=== PATIENT | female | born 1955 | race Caucasian/White ===

== ENCOUNTER → 2016-10-13 | Outpatient (CLI) | payer OTHER ==
--- NOTE | 2016-10-13 11:52 | REP ---
Gastric emptying nuclear scintigraphy: History: Nausea and vomiting. Technique: 0.989 mCi of technetium-99m sulfur colloid was ingested in two scrambled eggs and 6 ounces of water and sequential anterior and posterior images are acquired for an 89-minute imaging observation period. Regions of interest are drawn around the stomach to plot gastric emptying. Scintigraphic findings: Expected T1/2 is 90 minutes. 12 % emptying is observed in this patient during the 89-minute imaging observation period, for a calculated T1/2 in this patient of 377 minutes. Impression: Delayed gastric emptying. Signed by Edil Corado MD 10/13/2016 11:42 A
== END ==
LOC: M RAD 09:05
PROVIDERS: ATTEND Internal Medicine Gastroenterology
DX: R11.2 Nausea with vomiting, unspecified (principal)

== ENCOUNTER 2018-10-10 14:26 | Emergency (ER) | payer OTHER ==
[~2018-10-10] VITALS: Ht 165.1 cm; Wt 88.6 kg
[2018-10-10] MEDS ORDERED: HEPARIN 25,000 UNITS/250 ML D5W BAG (100 UNITS/ML) ONE (14:27)
[2018-10-10] MEDS ORDERED: MECLIZINE 25 MG TABLET PO ONE (15:15)
[2018-10-10 15:20] LABS: BASO # 0.1 10^3/uL (0.0-0.2); BASO % 0.9 % (0.0-1.0); EOS # 0.1 10^3/uL (0.0-0.50); LYMPH # 2.4 10^3/uL (1.5-4.5); LYMPH % 24.7 % (24.0-44.0); MEAN CORPUSCULAR HEMOGLOBIN 30.3 pg (27.0-33.0); MEAN CORPUSCULAR HGB CONC 34.2 g/dl (32.0-36.5); MEAN CORPUSCULAR VOLUME 88.6 fl (80.0-96.0); MONO # 0.6 10^3/uL (0.0-0.8); MONO % 5.9 % (0.0-5.0); NEUTROPHILS # 6.5 10^3/uL (1.8-7.7); NEUTROPHILS % 67.2 % (36.0-66.0); PLATELET COUNT, AUTOMATED 326 10^3/uL (150-450); RED BLOOD COUNT 4.29 10^6/uL (4.00-5.40); WHITE BLOOD COUNT 9.6 10^3/uL (4.0-10.0)
[2018-10-10 15:32] LABS: INR 1.08; PARTIAL THROMBOPLASTIN TIME 27.9 SECONDS (25.4-37.6); PROTHROMBIN TIME 14.1 SECONDS (12.1-14.4)
[2018-10-10 15:37] LABS: ALBUMIN 3.1 GM/DL (3.2-5.2); ALT/SGPT 17 U/L (12-78); BILIRUBIN,DIRECT 0.1 MG/DL (0.0-0.2); BILIRUBIN,TOTAL 0.5 MG/DL (0.2-1.0); BLOOD UREA NITROGEN 19 MG/DL (7-18); CALCIUM LEVEL 8.3 MG/DL (8.8-10.2); CARBON DIOXIDE LEVEL 22 MEQ/L (21-32); CHLORIDE LEVEL 112 MEQ/L (98-107); CPK CREATINE PHOSPHOKINASE 76 U/L (26-192); CREATININE FOR GFR 0.97 MG/DL (0.55-1.30); GLOMERULAR FILTRATION RATE > 60.0 (>45); GLUCOSE, FASTING 131 MG/DL (70-100); MB/CK RELATIVE INDEX 1.32 (< OR =4); POTASSIUM SERUM 3.2 MEQ/L (3.5-5.1); SODIUM LEVEL 143 MEQ/L (136-145); THYROID STIMULATING HORMONE 0.869 uIU/ML (0.358-3.740); TOTAL PROTEIN 6.6 GM/DL (6.4-8.2); TROPONIN I < 0.02 NG/ML (< 0.10)
[2018-10-10] MEDS ORDERED: POTASSIUM CHLORIDE 10 MEQ SR TABLET PO ONE (16:00)
[2018-10-10] MEDS ORDERED: BREO1INH3 INH (16:25)
[2018-10-10] MEDS ORDERED: NEXI20CA33 PO (16:25)
[2018-10-10] MEDS ORDERED: LOSA100T8 PO (16:25)
[2018-10-10] MEDS ORDERED: POTA1TAB23 PO (16:25)
[2018-10-10] MEDS ORDERED: METO10TA2 PO (16:25)
[2018-10-10] MEDS ORDERED: VITA500045 PO (16:28)
[2018-10-10] MEDS ORDERED: FLON1SPR NARES (16:28)
[2018-10-10] MEDS ORDERED: glucosamine (16:28)
[2018-10-10] MEDS ORDERED: MULTCAP PO (16:28)
[2018-10-10] MEDS ORDERED: CVS1CAP2 PO (16:28)
[2018-10-10] MEDS ORDERED: ALTEPLASE RECOMBINANT IV ONE (17:00)
[2018-10-10] MEDS ORDERED: ALTEPLASE 100MG INJ (J2997) IV ONE (17:00)
[2018-10-10] MEDS ORDERED: DILUENT IV ONE (17:00)
[2018-10-10] MEDS ORDERED: NS 1,000 ML IV ONE (17:00)
[2018-10-10 17:29] VITALS: BP 173/83
[2018-10-10] MEDS ORDERED: LABETALOL HCL 100 MG/20 ML VIAL As Ordered ONE (17:35)
--- NOTE | 2018-10-11 07:41 | REP ---
REASON FOR EXAM: Head pain. Possible CVA. PRIORS: None. Decreased density is seen in the deep cerebral white matter but particularly in the left temporoparietal region. Acute CVA cannot be ruled out by this exam. There is no evidence of an intracranial hemorrhagic event. There is no shift of the midline structures. The ventricles and sulci are otherwise within normal limits. There is no evidence of an abnormality involving the posterior fossa. There is no skull fracture. The imaged paranasal sinuses and mastoid air cells are clear. IMPRESSION: Decreased density in the deep white matter, but particularly on the left as described above. Electronically Signed by Carlitos Roger DO 10/11/2018 08:39 A
--- NOTE | 2018-10-11 07:48 | REP ---
REASON FOR EXAM: Stroke like symptoms. COMPARISON EXAM: 03/15/2014. FINDINGS: The superior mediastinal structures are midline. The cardiac silhouette is unremarkable in size, shape, and position. The diaphragmatic surfaces of the lungs are regular, and the costophrenic angles are clear. The pulmonary adler are clear. The imaged osseous structures are intact. IMPRESSION: There is no acute cardiopulmonary disease. No change from the prior exam. Electronically Signed by Carlitos Roger DO 10/11/2018 08:40 A
--- NOTE | 2018-10-11 23:26 | ECGEPIP ---
Stationary ECG Study [facility] - ED Test Date: 2018-10-10 Pat Name: CANDELARIA ROA Department: Room: - Gender: F Artists' Model: LEXX : 1955 Requested By: GALA Greenberg Order Number: [id number] Reading MD: Thomas Dale Measurements Intervals [place] Rate: 94 P: 40 [place]: 151 QRS: -6 QRSD: 91 T: 23 QT: 373 QTc: 466 Interpretive Statements SINUS RHYTHM MODERATE VOLTAGE CRITERIA FOR LVH, CONSIDER NORMAL VARIANT Nonspecific ST-T wave abnormalities Comparison tracing not on file Electronically Signed On 10-11-2018 23:26:18 EDT by Thomas Dale
== END 2018-10-10 17:31 | disposition short-term general hospital (02) ==
LOC: M ED 14:26
DX: I63.9 Cerebral infarction, unspecified (principal); I10 Essential (primary) hypertension; Z79.899 Other long term (current) drug therapy; Z88.5 Allergy status to narcotic agent; Z91.010 Allergy to peanuts; Z91.011 Allergy to milk products
CPT/HCPCS: 70450; 71046; 80048; 80076; 82550; 82553; 84439; 84443; 84484; 85025; 85610; 85730; 93005; 93041; 94760; 96374; 99285; J2997

== ENCOUNTER 2018-11-18 14:43 | Outpatient (RCR) | payer OTHER ==
[~2018-11-18 14:43] MED LIST: BREO1INH3 INH; CVS1CAP2 PO; FLON1SPR NARES; LOSA100T8 PO; METO10TA2 PO; MULTCAP PO; NEXI20CA33 PO; POTA1TAB23 PO; VITA500045 PO; glucosamine
== END 2018-11-21 ==
LOC: M PT 14:43
PROVIDERS: ATTEND Psychiatry & Neurology Neurology
DX: Z47.89 Encounter for other orthopedic aftercare (principal)

== ENCOUNTER 2018-12-21 14:37 | Outpatient (RCR) | payer OTHER, MEDICARE | END 2018-12-22 | LOC: M PT 14:37 | PROVIDERS: ATTEND Psychiatry & Neurology Neurology | DX: Z51.89 Encounter for other specified aftercare (principal); I63.9 Cerebral infarction, unspecified ==

== ENCOUNTER 2019-01-20 14:30 | Outpatient (RCR) | payer OTHER, MEDICARE | END 2019-01-22 | disposition home or self-care (01) | LOC: M ST 14:30 | PROVIDERS: ATTEND Psychiatry & Neurology Neurology | DX: Z47.89 Encounter for other orthopedic aftercare (principal); Z98.890 Other specified postprocedural states; M22.42 Chondromalacia patellae, left knee ==

== ENCOUNTER 2019-02-17 14:15 | Outpatient (RCR) | payer OTHER, MEDICARE | END 2019-02-21 | LOC: M ST 14:15 | PROVIDERS: ATTEND Psychiatry & Neurology Neurology | DX: Z51.89 Encounter for other specified aftercare (principal); I63.10 Cerebral infarction due to embolism of unspecified precerebral artery | CPT/HCPCS: G0515 ×12 ==

== ENCOUNTER → 2019-03-24 | Outpatient (RCR) | payer OTHER, MEDICARE | LOC: M ST 02-22 14:19 | PROVIDERS: ATTEND Psychiatry & Neurology Neurology | DX: I63.10 Cerebral infarction due to embolism of unspecified precerebral artery (principal) | CPT/HCPCS: G0515 ×18 ==

== ENCOUNTER → 2021-05-07 | Outpatient (CLI) | payer OTHER, MEDICARE ==
--- NOTE | 2021-05-07 11:51 | REP ---
INDICATION: COUGH COMPARISON: None TECHNIQUE: Axial noncontrast images from the thoracic inlet to the upper abdomen with coronal and sagittal reformations. This CT examination was performed using the following dose reduction techniques: Automated exposure control, adjustment of mA and/or kv according to the patient's size, and use of iterative reconstruction technique. FINDINGS: Bilateral lung adler are well aerated and clear. No consolidation, suspicious nodule or mass. No significant interstitial changes are appreciated. No effusion. No pneumothorax. Tracheobronchial tree is patent. The mediastinum demonstrates atherosclerotic changes to the thoracic aorta and coronary arteries without aortic aneurysm or cardiomegaly. No pericardial effusion. No axillary, hilar, or mediastinal adenopathy. Surrounding musculoskeletal structures demonstrate age-related changes without acute osseous abnormality. Limited upper abdomen demonstrates normal bilateral adrenal glands and evidence for prior cholecystectomy. IMPRESSION: No acute mediastinal or pleuroparenchymal process. <Electronically signed by Cesar Menchaca > 05/07/21 [id number]
--- NOTE | 2021-05-07 12:29 | REP ---
INDICATION: PAIN. COMPARISON: None. TECHNIQUE: AP, lateral, flexion/extension, bilateral oblique, and open-mouth views of the cervical spine FINDINGS: Alignment is maintained. There is no evidence for acute fracture/compression injury or subluxation. Vertebral bodies, disc spaces, and posterior elements/spinous processes are essentially age-appropriate. Minimal disc space narrowing at C6-7 cannot be excluded. Oblique views demonstrate patent neural foramen. Open mouth view demonstrates age-appropriate C1-C2 articulation and odontoid process. IMPRESSION: Essentially age-appropriate examination as noted above. <Electronically signed by Cesar Menchaca > 05/07/21 [id number]
== END ==
LOC: M PLAIMG 10:45
PROVIDERS: ATTEND Internal Medicine
DX: R05.9 Cough, unspecified (principal)

== ENCOUNTER 2021-07-16 19:27 | Inpatient (IN) | payer OTHER, MEDICARE ==
[~2021-07-16] VITALS: Ht 165.1 cm; Wt 87.6 kg
[2021-07-16] MEDS ORDERED: CEFD300C41 (19:45)
[2021-07-16 20:39] LABS: BASO # 0.1 10^3/uL (0.0-0.2); BASO % 0.8 % (0.0-1.0); EOS # 0.2 10^3/uL (0.0-0.5); EOS % 1.1 % (0.0-3.0); HEMATOCRIT 38.9 % (36.0-47.0); HEMOGLOBIN 13.5 g/dl (12.0-15.5); LYMPH # 2.9 10^3/uL (1.5-5.0); LYMPH % 20.3 % (24.0-44.0); MEAN CORPUSCULAR HEMOGLOBIN 29.3 pg (27.0-33.0); MEAN CORPUSCULAR HGB CONC 34.7 g/dl (32.0-36.5); MEAN CORPUSCULAR VOLUME 84.4 fl (80.0-96.0); MONO # 1.1 10^3/uL (0.0-0.8); NEUTROPHILS # 9.8 10^3/uL (1.5-8.5); NEUTROPHILS % 69.3 % (36.0-66.0); PLATELET COUNT, AUTOMATED 548 10^3/uL (150-450); RED BLOOD COUNT 4.61 10^6/uL (4.00-5.40); WHITE BLOOD COUNT 14.1 10^3/uL (4.0-10.0)
[2021-07-16 20:58] LABS: CK-MB VALUE MASS < 1.0 NG/ML (<3.6); CPK CREATINE PHOSPHOKINASE 35 U/L (26-192); MB/CK RELATIVE INDEX 2.86 (< OR =4)
[2021-07-16 21:07] LABS: ALBUMIN 2.8 GM/DL (3.2-5.2); BILIRUBIN,DIRECT 0.2 MG/DL (0.0-0.2); BILIRUBIN,TOTAL 0.6 MG/DL (0.2-1.0); CALCIUM LEVEL 8.9 MG/DL (8.8-10.2); CREATININE FOR GFR 1.44 MG/DL (0.55-1.30); GLOMERULAR FILTRATION RATE 38.7 (>45); POTASSIUM SERUM 2.8 MEQ/L (3.5-5.1); TOTAL PROTEIN 7.4 GM/DL (6.4-8.2)
[2021-07-16] MEDS ORDERED: NS 1,000 ML IV SCH (21:25)
[2021-07-16] MEDS ORDERED: ISOVUE-370 76% 100ML VIAL As Ordered ONE (21:36)
[2021-07-16] MEDS ORDERED: KCL 10MEQ/100ML SWI (KRUN) 10 MEQ in IV 1 EA IV ONE (22:00)
[2021-07-16] MEDS ORDERED: POTASSIUM CHLORIDE 10MEQ SR TABLET PO ONE (22:00)
[2021-07-16 22:12] LABS: CK-MB VALUE MASS < 1.0 NG/ML (<3.6); CPK CREATINE PHOSPHOKINASE 32 U/L (26-192); MB/CK RELATIVE INDEX 3.12 (< OR =4)
[2021-07-16] MEDS ORDERED: ERTAPENEM SODIUM 1 GM in NS MINI-BAG PLUS 50 ML IV ONE (23:25)
[2021-07-16] MEDS ORDERED: CEFD300CAP PO (23:50)
[2021-07-16] MEDS ORDERED: FLON1SPR (23:50)
[2021-07-16] MEDS ORDERED: ATOR80TA59 PO (23:50)
[2021-07-16] MEDS ORDERED: DULO1CAP6 PO (23:50)
[2021-07-16] MEDS ORDERED: HYDR12.55 PO (23:50)
[2021-07-16] MEDS ORDERED: LEVAINH INH (23:50)
[2021-07-16] MEDS ORDERED: ESOM0.1C PO (23:50)
[2021-07-16] MEDS ORDERED: ERGO500029 PO (23:50)
[2021-07-16] MEDS ORDERED: LOSA100T45 PO (23:50)
[2021-07-16] MEDS ORDERED: POTA10TA67 PO (23:50)
[2021-07-16] MEDS ORDERED: ASPI325T55 PO (23:50)
[2021-07-16] MEDS ORDERED: HOME MED LIST COMPLETE! XX SCH (23:55)
[2021-07-17] MEDS ORDERED: HYDROMORPHONE HCL 0.5 MG/ 0.5 ML SYRINGE (J1170 PER 1) IV PRN ×2 (02:20→11:50)
[2021-07-17] MEDS: NS 1,000 ML IV SCH ×3 (02:20→21:52)
[2021-07-17] MEDS ORDERED: NS 1,000 ML IV ONE (02:20)
[2021-07-17] MEDS: KCL 10MEQ/100ML SWI (KRUN) 10 MEQ in IV 1 EA IV SCH ×6 (03:00→07:37)
[2021-07-17] MEDS: HEPARIN SOD (PORCINE) 5000UNITS/ML 1ML VIAL/SYRINGE SC SCH ×3 (04:53→21:52)
[2021-07-17 10:00] VITALS: BP 151/83
[2021-07-17 12:43] LABS: MEAN CORPUSCULAR HEMOGLOBIN 29.5 pg (27.0-33.0); MEAN CORPUSCULAR HGB CONC 34.1 g/dl (32.0-36.5); MEAN CORPUSCULAR VOLUME 86.7 fl (80.0-96.0); PLATELET COUNT, AUTOMATED 456 10^3/uL (150-450); RED BLOOD COUNT 3.69 10^6/uL (4.00-5.40); WHITE BLOOD COUNT 12.6 10^3/uL (4.0-10.0)
[2021-07-17 12:56] LABS: HEMOGLOBIN 10.9 g/dl (12.0-15.5)
[2021-07-17 13:14] LABS: CALCIUM LEVEL 7.8 MG/DL (8.8-10.2); CREATININE FOR GFR 1.03 MG/DL (0.55-1.30); GLOMERULAR FILTRATION RATE 56.9 (>45); POTASSIUM SERUM 3.7 MEQ/L (3.5-5.1)
[2021-07-17] MEDS ORDERED: LIDOCAINE 1% MDV 20ML VIAL As Ordered ONE (15:25)
[2021-07-17 17:09] VITALS: BP 131/73
[2021-07-17] MEDS: KETOROLAC 30 MG/ML 1ML VIAL IV PRN (17:54)
[2021-07-17 22:00] VITALS: BP 122/68
[2021-07-17] MEDS: ERTAPENEM SODIUM 1 GM in NS MINI-BAG PLUS 50 ML IV SCH (23:38)
[2021-07-18] MEDS: HEPARIN SOD (PORCINE) 5000UNITS/ML 1ML VIAL/SYRINGE SC SCH ×3 (05:34→21:22)
[2021-07-18] MEDS: KETOROLAC 30 MG/ML 1ML VIAL IV PRN ×3 (05:57→18:22)
[2021-07-18 06:00] VITALS: BP 112/63
[2021-07-18 07:16] LABS: HEMOGLOBIN 10.1 g/dl (12.0-15.5); MEAN CORPUSCULAR HEMOGLOBIN 29.6 pg (27.0-33.0); MEAN CORPUSCULAR HGB CONC 33.7 g/dl (32.0-36.5); PLATELET COUNT, AUTOMATED 415 10^3/uL (150-450); RED BLOOD COUNT 3.41 10^6/uL (4.00-5.40); WHITE BLOOD COUNT 8.3 10^3/uL (4.0-10.0)
[2021-07-18 07:40] LABS: CALCIUM LEVEL 7.7 MG/DL (8.8-10.2); CREATININE FOR GFR 1.02 MG/DL (0.55-1.30); GLOMERULAR FILTRATION RATE 57.5 (>45); POTASSIUM SERUM 3.5 MEQ/L (3.5-5.1)
[2021-07-18] MEDS: NS 1,000 ML IV SCH (08:27)
[2021-07-18] MEDS ORDERED: LEVALBUTEROL HFA 45MCG/ACT 15 GM INHALER INH PRN (09:20)
[2021-07-18] MEDS: POTASSIUM CHLORIDE 10MEQ SR TABLET PO SCH ×2 (10:28→21:22)
[2021-07-18] MEDS: ATORVASTATIN 20 MG TAB PO SCH (10:29)
[2021-07-18] MEDS: ASPIRIN 325 MG TAB PO SCH (10:29)
[2021-07-18] MEDS: ADVAIR HFA 115/21MCG INHALER INH SCH ×2 (11:25→20:09)
[2021-07-18] MEDS ORDERED: LOPERAMIDE 2 MG CAPLET PO PRN (13:35)
[2021-07-18] MEDS: LACTOBACILLUS ACIDOPHILUS CAP (BACID) PO SCH ×3 (13:46→21:19)
[2021-07-18 14:00] VITALS: BP 118/68
[2021-07-18] MEDS ORDERED: SODIUM CHLORIDE 0.9% 1000ML IV ONE (20:55)
[2021-07-18] MEDS ORDERED: HYOSCYAMINE SULFATE 0.125 MG SUBL TABLET PO ONE (21:00)
[2021-07-18] MEDS ORDERED: MORPHINE 4 MG/ML 1ML VIAL/SYRINGE (J2270) IV ONE (21:05)
[2021-07-18] MEDS: DULoxetine 30MG CAPSULE (CYMBALTA) PO SCH (21:19)
[2021-07-18] MEDS: PANTOPRAZOLE 20 MG TAB PO SCH (21:19)
[2021-07-18] MEDS: FLUTICASONE PROP 0.05% NASAL SPRAY 16 GM (FLONASE) SCH (21:19)
[2021-07-18] MEDS: ONDANSETRON 4MG/2ML VIAL IV PRN (21:20)
[2021-07-18 22:00] VITALS: BP 120/64
[2021-07-18] MEDS ORDERED: MAGNESIUM OXIDE 400MG TAB (MAG-OX) PO ONE (22:45)
[2021-07-18] MEDS: MAG SULF 1GM/100ML (MAG RUN) 1 GM in IV 1 EA IV SCH (22:57)
[2021-07-19] MEDS: MAG SULF 1GM/100ML (MAG RUN) 1 GM in IV 1 EA IV SCH (00:05)
[2021-07-19] MEDS: ENOXAPARIN 80MG/0.8ML SYRINGE (J1650 PER 10MG) SC SCH ×3 (01:04→20:33)
[2021-07-19] MEDS: ERTAPENEM SODIUM 1 GM in NS MINI-BAG PLUS 50 ML IV SCH (01:10)
[2021-07-19] MEDS: METOPROLOL TART 25 MG TABLET PO SCH ×3 (01:10→20:34)
[2021-07-19 04:13] LABS: HEMATOCRIT 30.5 % (36.0-47.0); HEMOGLOBIN 10.4 g/dl (12.0-15.5); MEAN CORPUSCULAR HEMOGLOBIN 29.3 pg (27.0-33.0); MEAN CORPUSCULAR HGB CONC 34.1 g/dl (32.0-36.5); MEAN CORPUSCULAR VOLUME 85.9 fl (80.0-96.0); PLATELET COUNT, AUTOMATED 470 10^3/uL (150-450); RED BLOOD COUNT 3.55 10^6/uL (4.00-5.40); WHITE BLOOD COUNT 13.7 10^3/uL (4.0-10.0)
[2021-07-19 04:45] VITALS: BP 101/59
[2021-07-19 04:52] LABS: BLOOD UREA NITROGEN 9 MG/DL (7-18); CALCIUM LEVEL 7.5 MG/DL (8.8-10.2); CARBON DIOXIDE LEVEL 22 MEQ/L (21-32); CHLORIDE LEVEL 112 MEQ/L (98-107); CREATININE FOR GFR 0.94 MG/DL (0.55-1.30); GLOMERULAR FILTRATION RATE > 60.0 (>45); GLUCOSE, FASTING 123 MG/DL (70-100); POTASSIUM SERUM 3.4 MEQ/L (3.5-5.1); SODIUM LEVEL 142 MEQ/L (136-145)
[2021-07-19] MEDS: ADVAIR HFA 115/21MCG INHALER INH SCH ×2 (07:12→19:55)
[2021-07-19] MEDS ORDERED: POTASSIUM CHLORIDE 10MEQ SR TABLET PO ONE (07:45)
[2021-07-19 08:00] VITALS: BP 96/53
[2021-07-19] MEDS: ASPIRIN 325 MG TAB PO SCH (09:26)
[2021-07-19] MEDS: ATORVASTATIN 20 MG TAB PO SCH (09:26)
[2021-07-19] MEDS: LACTOBACILLUS ACIDOPHILUS CAP (BACID) PO SCH ×4 (09:26→20:34)
[2021-07-19] MEDS: POTASSIUM CHLORIDE 10MEQ SR TABLET PO SCH ×2 (09:27→20:34)
[2021-07-19] MEDS: ACETAMINOPHEN TAB 650MG DOSE (2X325MG) PO PRN (10:40)
[2021-07-19 12:00] VITALS: BP 93/67
[2021-07-19 16:00] VITALS: BP 99/55
[2021-07-19 20:00] VITALS: BP 114/58
[2021-07-19] MEDS: KETOROLAC 30 MG/ML 1ML VIAL IV PRN (20:33)
[2021-07-19] MEDS: PANTOPRAZOLE 20 MG TAB PO SCH (20:34)
[2021-07-19] MEDS: FIBER-CON 625 MG TAB PO SCH (20:34)
[2021-07-19] MEDS: DULoxetine 30MG CAPSULE (CYMBALTA) PO SCH (20:35)
[2021-07-19] MEDS: FLUTICASONE PROP 0.05% NASAL SPRAY 16 GM (FLONASE) SCH (20:35)
[2021-07-19] MEDS: NS 1,000 ML IV SCH (20:35)
[2021-07-20] VITALS (7 sets, daily range): BP systolic 100–131; BP diastolic 51–66
[2021-07-20] MEDS: ERTAPENEM SODIUM 1 GM in NS MINI-BAG PLUS 50 ML IV SCH (02:56)
[2021-07-20] MEDS: NS 1,000 ML IV SCH ×2 (02:57→15:27)
[2021-07-20 05:45] LABS: HEMATOCRIT 30.2 % (36.0-47.0); HEMOGLOBIN 9.8 g/dl (12.0-15.5); MEAN CORPUSCULAR HEMOGLOBIN 28.9 pg (27.0-33.0); MEAN CORPUSCULAR HGB CONC 32.5 g/dl (32.0-36.5); MEAN CORPUSCULAR VOLUME 89.1 fl (80.0-96.0); PLATELET COUNT, AUTOMATED 390 10^3/uL (150-450); RED BLOOD COUNT 3.39 10^6/uL (4.00-5.40); WHITE BLOOD COUNT 8.6 10^3/uL (4.0-10.0)
[2021-07-20 06:14] LABS: BLOOD UREA NITROGEN 7 MG/DL (7-18); CALCIUM LEVEL 7.6 MG/DL (8.8-10.2); CARBON DIOXIDE LEVEL 23 MEQ/L (21-32); CHLORIDE LEVEL 116 MEQ/L (98-107); CREATININE FOR GFR 0.84 MG/DL (0.55-1.30); GLOMERULAR FILTRATION RATE > 60.0 (>45); GLUCOSE, FASTING 112 MG/DL (70-100); POTASSIUM SERUM 3.2 MEQ/L (3.5-5.1); SODIUM LEVEL 143 MEQ/L (136-145)
[2021-07-20] MEDS ORDERED: POTASSIUM CHLORIDE 10MEQ SR TABLET PO ONE (07:40)
[2021-07-20] MEDS: ADVAIR HFA 115/21MCG INHALER INH SCH ×2 (08:39→19:53)
[2021-07-20] MEDS: ENOXAPARIN 80MG/0.8ML SYRINGE (J1650 PER 10MG) SC SCH ×2 (09:21→20:30)
[2021-07-20] MEDS: POTASSIUM CHLORIDE 10MEQ SR TABLET PO SCH ×2 (09:22→20:31)
[2021-07-20] MEDS: METOPROLOL TART 25 MG TABLET PO SCH ×2 (09:22→20:30)
[2021-07-20] MEDS: ATORVASTATIN 20 MG TAB PO SCH (09:22)
[2021-07-20] MEDS: LACTOBACILLUS ACIDOPHILUS CAP (BACID) PO SCH ×4 (09:23→20:29)
[2021-07-20] MEDS: ASPIRIN 325 MG TAB PO SCH (09:23)
[2021-07-20] MEDS: FIBER-CON 625 MG TAB PO SCH ×2 (09:23→20:30)
[2021-07-20] MEDS: ONDANSETRON 4MG/2ML VIAL IV PRN ×2 (15:26→20:29)
[2021-07-20] MEDS: KETOROLAC 30 MG/ML 1ML VIAL IV PRN (20:29)
[2021-07-20] MEDS: DULoxetine 30MG CAPSULE (CYMBALTA) PO SCH (20:29)
[2021-07-20] MEDS: PANTOPRAZOLE 20 MG TAB PO SCH (20:31)
[2021-07-20] MEDS: FLUTICASONE PROP 0.05% NASAL SPRAY 16 GM (FLONASE) SCH (20:31)
[2021-07-21] VITALS: BP 116/57
[2021-07-21] MEDS: ERTAPENEM SODIUM 1 GM in NS MINI-BAG PLUS 50 ML IV SCH (00:18)
[2021-07-21] MEDS ORDERED: CALCIUM CARBONATE 500 MG CHEW U/D PO ONE (02:00)
[2021-07-21 04:00] VITALS: BP 120/59
[2021-07-21 06:05] LABS: HEMATOCRIT 28.8 % (36.0-47.0); HEMOGLOBIN 9.6 g/dl (12.0-15.5); MEAN CORPUSCULAR HEMOGLOBIN 29.4 pg (27.0-33.0); MEAN CORPUSCULAR HGB CONC 33.3 g/dl (32.0-36.5); MEAN CORPUSCULAR VOLUME 88.1 fl (80.0-96.0); PLATELET COUNT, AUTOMATED 380 10^3/uL (150-450); RED BLOOD COUNT 3.27 10^6/uL (4.00-5.40); WHITE BLOOD COUNT 8.8 10^3/uL (4.0-10.0)
[2021-07-21 06:24] LABS: BLOOD UREA NITROGEN 5 MG/DL (7-18); CALCIUM LEVEL 7.5 MG/DL (8.8-10.2); CARBON DIOXIDE LEVEL 21 MEQ/L (21-32); CHLORIDE LEVEL 120 MEQ/L (98-107); GLOMERULAR FILTRATION RATE > 60.0 (>45); GLUCOSE, FASTING 107 MG/DL (70-100); POTASSIUM SERUM 3.8 MEQ/L (3.5-5.1); SODIUM LEVEL 146 MEQ/L (136-145)
[2021-07-21] MEDS: NS 1,000 ML IV SCH (06:53)
[2021-07-21] MEDS: ADVAIR HFA 115/21MCG INHALER INH SCH ×2 (07:48→20:20)
[2021-07-21 08:00] VITALS: BP 127/59
[2021-07-21] MEDS: LACTOBACILLUS ACIDOPHILUS CAP (BACID) PO SCH ×4 (08:39→21:19)
[2021-07-21] MEDS: FIBER-CON 625 MG TAB PO SCH ×2 (08:39→21:19)
[2021-07-21] MEDS: METOPROLOL TART 25 MG TABLET PO SCH ×2 (08:39→21:19)
[2021-07-21] MEDS: ENOXAPARIN 80MG/0.8ML SYRINGE (J1650 PER 10MG) SC SCH ×2 (08:39→21:20)
[2021-07-21] MEDS: ATORVASTATIN 20 MG TAB PO SCH (08:39)
[2021-07-21] MEDS: ASPIRIN 325 MG TAB PO SCH (08:39)
[2021-07-21] MEDS: POTASSIUM CHLORIDE 10MEQ SR TABLET PO SCH ×2 (08:39→21:19)
[2021-07-21 12:00] VITALS: BP 111/59
[2021-07-21] MEDS: SUCRALFATE SUSP 1GM/10ML UD PO SCH ×3 (13:28→21:22)
[2021-07-21 16:00] VITALS: BP 132/67
[2021-07-21] MEDS: KETOROLAC 30 MG/ML 1ML VIAL IV PRN (17:10)
[2021-07-21] MEDS: ACETAMINOPHEN TAB 650MG DOSE (2X325MG) PO PRN (18:55)
[2021-07-21] MEDS ORDERED: PANTOPRAZOLE 40MG TAB (PROTONIX) PO SCH (21:00)
[2021-07-21] MEDS: DULoxetine 30MG CAPSULE (CYMBALTA) PO SCH (21:18)
[2021-07-21] MEDS: FLUTICASONE PROP 0.05% NASAL SPRAY 16 GM (FLONASE) SCH (21:20)
[2021-07-22] VITALS: BP 109/52
[2021-07-22] MEDS: KETOROLAC 30 MG/ML 1ML VIAL IV PRN (00:31)
[2021-07-22] MEDS: ERTAPENEM SODIUM 1 GM in NS MINI-BAG PLUS 50 ML IV SCH (00:59)
[2021-07-22 04:00] VITALS: BP 140/82
[2021-07-22 06:04] LABS: HEMOGLOBIN 9.6 g/dl (12.0-15.5); MEAN CORPUSCULAR HEMOGLOBIN 29.4 pg (27.0-33.0); MEAN CORPUSCULAR HGB CONC 33.1 g/dl (32.0-36.5); PLATELET COUNT, AUTOMATED 418 10^3/uL (150-450); RED BLOOD COUNT 3.26 10^6/uL (4.00-5.40)
[2021-07-22 06:26] LABS: BLOOD UREA NITROGEN 6 MG/DL (7-18); CALCIUM LEVEL 7.7 MG/DL (8.8-10.2); CARBON DIOXIDE LEVEL 19 MEQ/L (21-32); CHLORIDE LEVEL 118 MEQ/L (98-107); CREATININE FOR GFR 0.86 MG/DL (0.55-1.30); GLOMERULAR FILTRATION RATE > 60.0 (>45); GLUCOSE, FASTING 102 MG/DL (70-100); POTASSIUM SERUM 4.3 MEQ/L (3.5-5.1); SODIUM LEVEL 145 MEQ/L (136-145)
[2021-07-22] MEDS: ADVAIR HFA 115/21MCG INHALER INH SCH (07:31)
[2021-07-22 08:00] VITALS: BP 137/63
[2021-07-22] MEDS: ENOXAPARIN 80MG/0.8ML SYRINGE (J1650 PER 10MG) SC SCH (08:27)
[2021-07-22] MEDS: ATORVASTATIN 20 MG TAB PO SCH (08:27)
[2021-07-22] MEDS: ASPIRIN 325 MG TAB PO SCH (08:28)
[2021-07-22] MEDS: FIBER-CON 625 MG TAB PO SCH (08:28)
[2021-07-22] MEDS: LACTOBACILLUS ACIDOPHILUS CAP (BACID) PO SCH ×2 (08:28→12:45)
[2021-07-22] MEDS: POTASSIUM CHLORIDE 10MEQ SR TABLET PO SCH (08:28)
[2021-07-22] MEDS: SUCRALFATE SUSP 1GM/10ML UD PO SCH ×2 (08:28→11:47)
[2021-07-22 08:36] VITALS: BP 137/63
[2021-07-22] MEDS: METOPROLOL TART 25 MG TABLET PO SCH (08:36)
[2021-07-22 08:55] VITALS: BP 132/75
[2021-07-22] MEDS ORDERED: FIBE62TA PO (11:03)
[2021-07-22] MEDS ORDERED: METO1TAB87 PO (11:03)
[2021-07-22] MEDS ORDERED: ELIQ5TAB PO (11:03)
[2021-07-22] MEDS ORDERED: ACET650T15 PO (11:03)
[2021-07-22] MEDS ORDERED: RISATAB3 PO (11:03)
[2021-07-22] MEDS ORDERED: LEVO750T13 PO (11:03)
== END 2021-07-22 14:03 | disposition home or self-care (01) | DRG 872 ==
LOC: M ED 19:27 → M ED INP 07-17 02:17 → ENRESERV 07-17 14:30 → M MSPAV 07-17 17:24 → M PCU 07-19 01:19 → M MSPAV 07-22 08:57
PROVIDERS: ADMIT Internal Medicine; ATTEND Internal Medicine
PROC: 0W9J30Z Drainage of Pelvic Cavity with Drainage Device, Percutaneous Approach (ICD-10-PCS; principal; 2021-07-17 15:00)
DX: A41.9 Sepsis, unspecified organism (principal); K57.80 Diverticulitis of intestine, part unspecified, with perforation and abscess without bleeding; N17.9 Acute kidney failure, unspecified; E87.6 Hypokalemia; E83.42 Hypomagnesemia; F32.A Depression, unspecified; Z86.73 Personal history of transient ischemic attack (TIA), and cerebral infarction without residual deficits; E78.5 Hyperlipidemia, unspecified; I48.91 Unspecified atrial fibrillation; B96.29 Other Escherichia coli [E. coli] as the cause of diseases classified elsewhere; B95.5 Unspecified streptococcus as the cause of diseases classified elsewhere; Z79.82 Long term (current) use of aspirin; Z79.899 Other long term (current) drug therapy; Z88.5 Allergy status to narcotic agent; Z91.040 Latex allergy status; Z91.011 Allergy to milk products

== ENCOUNTER 2021-07-27 13:30 | Emergency (ER) | payer OTHER, MEDICARE ==
[~2021-07-27] VITALS: Ht 165.1 cm; Wt 85.0 kg
[~2021-07-27 13:30] MED LIST changes: +ACET650T15 PO; +ASPI325T55 PO; +ATOR80TA59 PO; +CEFD300C41; +CEFD300CAP PO; +DULO1CAP6 PO; +ELIQ5TAB PO; +ERGO500029 PO; +ESOM0.1C PO; +FIBE62TA PO; +FLON1SPR; +HYDR12.55 PO; +LEVAINH INH; +LEVO750T13 PO; +LOSA100T45 PO; +METO1TAB87 PO; +POTA10TA67 PO; +RISATAB3 PO
[2021-07-27] MEDS ORDERED: MAGN400T33 (13:42)
[2021-07-27 14:56] LABS: BASO # 0.1 10^3/uL (0.0-0.2); BASO % 1.2 % (0.0-1.0); EOS # 0.2 10^3/uL (0.0-0.5); EOS % 1.7 % (0.0-3.0); HEMATOCRIT 35.6 % (36.0-47.0); HEMOGLOBIN 11.8 g/dl (12.0-15.5); LYMPH # 2.2 10^3/uL (1.5-5.0); MEAN CORPUSCULAR HEMOGLOBIN 29.6 pg (27.0-33.0); MEAN CORPUSCULAR HGB CONC 33.1 g/dl (32.0-36.5); MEAN CORPUSCULAR VOLUME 89.4 fl (80.0-96.0); MONO # 0.7 10^3/uL (0.0-0.8); MONO % 8.1 % (2.0-8.0); NEUTROPHILS # 5.5 10^3/uL (1.5-8.5); NEUTROPHILS % 63.7 % (36.0-66.0); PLATELET COUNT, AUTOMATED 457 10^3/uL (150-450); RED BLOOD COUNT 3.98 10^6/uL (4.00-5.40); WHITE BLOOD COUNT 8.7 10^3/uL (4.0-10.0)
[2021-07-27 15:29] LABS: ALBUMIN 2.4 GM/DL (3.2-5.2); BILIRUBIN,DIRECT 0.2 MG/DL (0.0-0.2); BILIRUBIN,TOTAL 0.5 MG/DL (0.2-1.0); CALCIUM LEVEL 8.1 MG/DL (8.8-10.2); CREATININE FOR GFR 1.11 MG/DL (0.55-1.30); GLOMERULAR FILTRATION RATE 52.2 (>45); POTASSIUM SERUM 3.9 MEQ/L (3.5-5.1); THYROID STIMULATING HORMONE 1.25 uIU/ML (0.358-3.740); TOTAL PROTEIN 6.2 GM/DL (6.4-8.2)
[2021-07-27 15:38] LABS: CK-MB VALUE MASS < 1.0 NG/ML (<3.6); CPK CREATINE PHOSPHOKINASE 40 U/L (26-192)
[2021-07-27 16:28] LABS: CK-MB VALUE MASS < 1.0 NG/ML (<3.6); CPK CREATINE PHOSPHOKINASE 118 U/L (26-192); MB/CK RELATIVE INDEX 0.85 (< OR =4)
[2021-07-27 20:26] VITALS: BP 145/84
== END 2021-07-27 20:41 | disposition home or self-care (01) ==
LOC: M ED 13:30
DX: R07.9 Chest pain, unspecified (principal); R20.2 Paresthesia of skin; I10 Essential (primary) hypertension; E78.5 Hyperlipidemia, unspecified; J45.909 Unspecified asthma, uncomplicated; I48.91 Unspecified atrial fibrillation; Z91.010 Allergy to peanuts; Z91.011 Allergy to milk products; Z88.6 Allergy status to analgesic agent

== ENCOUNTER → 2021-07-31 | Outpatient (REF) | payer OTHER, MEDICARE ==
[~2021-07-31] MED LIST changes: +MAGN400T33
== END ==
LOC: M LAB REF 16:15
PROVIDERS: ATTEND Internal Medicine
DX: R53.83 Other fatigue (principal)

== ENCOUNTER → 2021-10-29 | Outpatient (CLI) | payer OTHER, MEDICARE | LOC: M WUC 15:46 | PROVIDERS: ATTEND Internal Medicine | DX: M25.78 Osteophyte, vertebrae (principal); M54.9 Dorsalgia, unspecified ==

== ENCOUNTER 2021-11-03 13:02 | Inpatient (IN) | payer OTHER, MEDICARE ==
[~2021-11-03] VITALS: Ht 165.1 cm; Wt 81.0 kg
[2021-11-03 13:58] LABS: BASO # 0.1 10^3/uL (0.0-0.2); BASO % 1.3 % (0.0-1.0); EOS # 0.2 10^3/uL (0.0-0.5); HEMATOCRIT 43.3 % (36.0-47.0); HEMOGLOBIN 14.4 g/dl (12.0-15.5); LYMPH # 2.3 10^3/uL (1.5-5.0); LYMPH % 29.5 % (24.0-44.0); MEAN CORPUSCULAR HEMOGLOBIN 30.4 pg (27.0-33.0); MEAN CORPUSCULAR HGB CONC 33.3 g/dl (32.0-36.5); MEAN CORPUSCULAR VOLUME 91.5 fl (80.0-96.0); MONO # 0.5 10^3/uL (0.0-0.8); MONO % 5.7 % (2.0-8.0); NEUTROPHILS # 4.8 10^3/uL (1.5-8.5); NEUTROPHILS % 60.2 % (36.0-66.0); PLATELET COUNT, AUTOMATED 370 10^3/uL (150-450); RED BLOOD COUNT 4.73 10^6/uL (4.00-5.40); WHITE BLOOD COUNT 7.9 10^3/uL (4.0-10.0)
[2021-11-03 14:12] LABS: INR 1.25; PROTHROMBIN TIME 16.1 SECONDS (12.7-14.5)
[2021-11-03 14:13] LABS: PARTIAL THROMBOPLASTIN TIME 36.2 SECONDS (25.9-37.0)
[2021-11-03 14:27] LABS: CK-MB VALUE MASS < 1.0 NG/ML (<3.6); CPK CREATINE PHOSPHOKINASE 35 U/L (26-192); MB/CK RELATIVE INDEX 2.86 (< OR =4)
[2021-11-03 14:36] LABS: ALBUMIN 3.4 GM/DL (3.2-5.2); ALT/SGPT 16 U/L (12-78); BILIRUBIN,DIRECT 0.4 MG/DL (0.0-0.2); BILIRUBIN,TOTAL 0.8 MG/DL (0.2-1.0); BLOOD UREA NITROGEN 22 MG/DL (7-18); CALCIUM LEVEL 9.5 MG/DL (8.8-10.2); CARBON DIOXIDE LEVEL 22 MEQ/L (21-32); CHLORIDE LEVEL 112 MEQ/L (98-107); ETHYL ALCOHOL (ETHANOL) < 0.003 % (0.000-0.010); GLOMERULAR FILTRATION RATE 58.9 (>45); GLUCOSE, FASTING 137 MG/DL (70-100); LIPASE 195 U/L (73-393); POTASSIUM SERUM 3.9 MEQ/L (3.5-5.1); SODIUM LEVEL 144 MEQ/L (136-145); THYROID STIMULATING HORMONE 0.782 uIU/ML (0.358-3.740); TOTAL PROTEIN 7.5 GM/DL (6.4-8.2)
[2021-11-03 14:44] LABS: RSV AMPLIFICATION NEGATIVE (NEGATIVE)
[2021-11-03] MEDS ORDERED: ISOVUE-370 76% 100ML VIAL As Ordered ONE (15:12)
[2021-11-03 16:49] LABS: AMPHETAMINES LEVEL URINE NEGATIVE (NEGATIVE); BARBITURATES URINE NEGATIVE (NEGATIVE); BENZODIAZEPINES URINE NEGATIVE (NEGATIVE); CANNABINOIDS URINE NEGATIVE (NEGATIVE); COCAINE METABOLITE URINE NEGATIVE (NEGATIVE); METHADONE URINE NEGATIVE (NEGATIVE); OPIATES URINE NEGATIVE (NEGATIVE); PHENCYCLIDINE URINE NEGATIVE (NEGATIVE)
[2021-11-03] MEDS ORDERED: LOSA50TA28 PO (18:43)
[2021-11-03] MEDS ORDERED: ELIQ5TAB PO (18:43)
[2021-11-03] MEDS ORDERED: MAGN400T35 PO (18:43)
[2021-11-03] MEDS ORDERED: VITMTA PO (18:43)
[2021-11-03] MEDS ORDERED: ESOM1CAP5 PO (18:43)
[2021-11-03] MEDS ORDERED: FEXO-117 PO (18:43)
[2021-11-03] MEDS ORDERED: ASPI81TA26 PO (18:43)
[2021-11-03] MEDS ORDERED: HOME MED LIST COMPLETE! XX SCH (18:45)
[2021-11-03] MEDS ORDERED: FEXOFENADINE 60MG TAB PO PRN (19:40)
[2021-11-03] MEDS ORDERED: MOM 30ML SUSPENSION UDC PO PRN (19:40)
[2021-11-03] MEDS ORDERED: LEVALBUTEROL HFA 45MCG/ACT 15 GM INHALER INH PRN (19:40)
[2021-11-03] MEDS ORDERED: MAALOX 30 ML SUSP *UDC PO PRN (19:40)
[2021-11-03 20:17] LABS: NT-PRO BNP 64 PG/ML (<125)
[2021-11-03] MEDS: LOSARTAN 50MG TABLET PO SCH (21:51)
[2021-11-03] MEDS: APIXABAN 5 MG TAB (ELIQUIS) PO SCH (21:52)
[2021-11-03] MEDS: DULoxetine 30MG CAPSULE (CYMBALTA) PO SCH (21:52)
[2021-11-03] MEDS: POTASSIUM CHLORIDE 10MEQ SR TABLET PO SCH (21:52)
[2021-11-03] MEDS: DOCUSATE SODIUM 100MG CAPSULE PO SCH (21:53)
[2021-11-03] MEDS: FLUTICASONE PROP 0.05% NASAL SPRAY 16 GM (FLONASE) SCH (23:33)
[2021-11-03] MEDS: ADVAIR HFA 115/21MCG INHALER INH SCH (23:33)
[2021-11-04] VITALS (17 sets, daily range): BP systolic 112–180; BP diastolic 71–98; O2SAT 89–95
[2021-11-04] MEDS ORDERED: ONDANSETRON 4MG/2ML VIAL IV PRN (00:40)
[2021-11-04] MEDS: ADVAIR HFA 115/21MCG INHALER INH SCH ×2 (07:22→19:54)
[2021-11-04 07:34] LABS: HEMATOCRIT 41.7 % (36.0-47.0); HEMOGLOBIN 13.6 g/dl (12.0-15.5); MEAN CORPUSCULAR HEMOGLOBIN 29.8 pg (27.0-33.0); MEAN CORPUSCULAR HGB CONC 32.6 g/dl (32.0-36.5); MEAN CORPUSCULAR VOLUME 91.2 fl (80.0-96.0); PLATELET COUNT, AUTOMATED 338 10^3/uL (150-450); RED BLOOD COUNT 4.57 10^6/uL (4.00-5.40); WHITE BLOOD COUNT 8.2 10^3/uL (4.0-10.0)
[2021-11-04 08:07] LABS: ALBUMIN 3.2 GM/DL (3.2-5.2); ALT/SGPT 16 U/L (12-78); BILIRUBIN,TOTAL 0.7 MG/DL (0.2-1.0); BLOOD UREA NITROGEN 24 MG/DL (7-18); CALCIUM LEVEL 9.4 MG/DL (8.8-10.2); CARBON DIOXIDE LEVEL 23 MEQ/L (21-32); CHLORIDE LEVEL 112 MEQ/L (98-107); CREATININE FOR GFR 0.93 MG/DL (0.55-1.30); GLOMERULAR FILTRATION RATE > 60.0 (>45); GLUCOSE, FASTING 110 MG/DL (70-100); POTASSIUM SERUM 3.9 MEQ/L (3.5-5.1); SODIUM LEVEL 144 MEQ/L (136-145); TOTAL PROTEIN 6.8 GM/DL (6.4-8.2)
[2021-11-04] MEDS: POTASSIUM CHLORIDE 10MEQ SR TABLET PO SCH ×2 (10:02→21:09)
[2021-11-04] MEDS: ATORVASTATIN 20 MG TAB PO SCH (10:02)
[2021-11-04] MEDS: ASPIRIN 81MG ENTERIC TABLET PO SCH (10:03)
[2021-11-04] MEDS: OMEPRAZOLE 20MG CAP PO SCH (10:03)
[2021-11-04] MEDS: APIXABAN 5 MG TAB (ELIQUIS) PO SCH ×2 (10:03→21:09)
[2021-11-04] MEDS: DOCUSATE SODIUM 100MG CAPSULE PO SCH ×2 (10:04→21:09)
[2021-11-04] MEDS: ONDANSETRON 4MG/2ML VIAL IV PRN ×2 (13:20→23:21)
[2021-11-04] MEDS: FLUTICASONE PROP 0.05% NASAL SPRAY 16 GM (FLONASE) SCH (21:08)
[2021-11-04] MEDS: LOSARTAN 50MG TABLET PO SCH (21:09)
[2021-11-04] MEDS: DULoxetine 30MG CAPSULE (CYMBALTA) PO SCH (21:09)
[2021-11-04] MEDS: ACETAMINOPHEN TAB 650MG DOSE (2X325MG) PO PRN (21:11)
[2021-11-04] MEDS ORDERED: MECLIZINE 25 MG TABLET PO ONE (23:30)
[2021-11-05] VITALS (18 sets, daily range): BP systolic 102–167; BP diastolic 55–80; O2SAT 90–97
[2021-11-05 00:17] LABS: CK-MB VALUE MASS < 1.0 NG/ML (<3.6); CPK CREATINE PHOSPHOKINASE 46 U/L (26-192); MB/CK RELATIVE INDEX 2.17 (< OR =4)
[2021-11-05 00:35] LABS: CREATININE FOR GFR 1.02 MG/DL (0.55-1.30); GLOMERULAR FILTRATION RATE 57.5 (>45); MAGNESIUM LEVEL 1.9 MG/DL (1.8-2.4); POTASSIUM SERUM 3.8 MEQ/L (3.5-5.1); THYROID STIMULATING HORMONE 0.662 uIU/ML (0.358-3.740)
[2021-11-05] MEDS ORDERED: diltiaZEM 125 MG in NS 100 ML IV SCH (01:00)
[2021-11-05] MEDS: ADVAIR HFA 115/21MCG INHALER INH SCH ×2 (07:28→19:53)
[2021-11-05 07:55] LABS: BASO # 0.1 10^3/uL (0.0-0.2); EOS # 0.2 10^3/uL (0.0-0.5); EOS % 2.5 % (0.0-3.0); HEMATOCRIT 43.9 % (36.0-47.0); HEMOGLOBIN 14.1 g/dl (12.0-15.5); LYMPH # 2.2 10^3/uL (1.5-5.0); LYMPH % 28.8 % (24.0-44.0); MEAN CORPUSCULAR HEMOGLOBIN 29.9 pg (27.0-33.0); MEAN CORPUSCULAR HGB CONC 32.1 g/dl (32.0-36.5); MONO # 0.6 10^3/uL (0.0-0.8); MONO % 8.4 % (2.0-8.0); NEUTROPHILS # 4.5 10^3/uL (1.5-8.5); NEUTROPHILS % 59.2 % (36.0-66.0); PLATELET COUNT, AUTOMATED 356 10^3/uL (150-450); RED BLOOD COUNT 4.72 10^6/uL (4.00-5.40); WHITE BLOOD COUNT 7.6 10^3/uL (4.0-10.0)
[2021-11-05 08:25] LABS: ALBUMIN 3.5 GM/DL (3.2-5.2); BILIRUBIN,TOTAL 0.8 MG/DL (0.2-1.0); CALCIUM LEVEL 9.6 MG/DL (8.8-10.2); CREATININE FOR GFR 1.04 MG/DL (0.55-1.30); GLOMERULAR FILTRATION RATE 56.3 (>45); MAGNESIUM LEVEL 2.2 MG/DL (1.8-2.4); POTASSIUM SERUM 3.9 MEQ/L (3.5-5.1); TOTAL PROTEIN 7.3 GM/DL (6.4-8.2)
[2021-11-05] MEDS: ATORVASTATIN 20 MG TAB PO SCH (08:30)
[2021-11-05] MEDS: ASPIRIN 81MG ENTERIC TABLET PO SCH (09:02)
[2021-11-05] MEDS: APIXABAN 5 MG TAB (ELIQUIS) PO SCH ×2 (09:02→20:36)
[2021-11-05] MEDS: DOCUSATE SODIUM 100MG CAPSULE PO SCH ×2 (09:02→20:35)
[2021-11-05] MEDS: POTASSIUM CHLORIDE 10MEQ SR TABLET PO SCH ×2 (09:33→20:36)
[2021-11-05] MEDS: OMEPRAZOLE 20MG CAP PO SCH (09:33)
[2021-11-05] MEDS: ACETAMINOPHEN TAB 650MG DOSE (2X325MG) PO PRN (18:00)
[2021-11-05] MEDS: DULoxetine 30MG CAPSULE (CYMBALTA) PO SCH (20:36)
[2021-11-05] MEDS: LOSARTAN 50MG TABLET PO SCH (20:38)
[2021-11-05] MEDS: FLUTICASONE PROP 0.05% NASAL SPRAY 16 GM (FLONASE) SCH (20:38)
[2021-11-06] VITALS (10 sets, daily range): BP systolic 111–123; BP diastolic 62–69; O2SAT 92–95
[2021-11-06 05:24] LABS: BASO # 0.1 10^3/uL (0.0-0.2); EOS # 0.6 10^3/uL (0.0-0.5); EOS % 7.1 % (0.0-3.0); HEMATOCRIT 38.5 % (36.0-47.0); HEMOGLOBIN 12.7 g/dl (12.0-15.5); LYMPH # 2.6 10^3/uL (1.5-5.0); LYMPH % 32.5 % (24.0-44.0); MEAN CORPUSCULAR HEMOGLOBIN 30.8 pg (27.0-33.0); MEAN CORPUSCULAR VOLUME 93.2 fl (80.0-96.0); MONO # 0.6 10^3/uL (0.0-0.8); MONO % 7.5 % (2.0-8.0); NEUTROPHILS # 4.1 10^3/uL (1.5-8.5); NEUTROPHILS % 51.5 % (36.0-66.0); PLATELET COUNT, AUTOMATED 330 10^3/uL (150-450); RED BLOOD COUNT 4.13 10^6/uL (4.00-5.40); WHITE BLOOD COUNT 7.9 10^3/uL (4.0-10.0)
[2021-11-06 05:50] LABS: CALCIUM LEVEL 8.4 MG/DL (8.8-10.2); CREATININE FOR GFR 1.07 MG/DL (0.55-1.30); GLOMERULAR FILTRATION RATE 54.5 (>45); MAGNESIUM LEVEL 1.9 MG/DL (1.8-2.4)
[2021-11-06] MEDS: ADVAIR HFA 115/21MCG INHALER INH SCH ×2 (07:14→19:53)
[2021-11-06] MEDS: DOCUSATE SODIUM 100MG CAPSULE PO SCH ×2 (09:23→20:14)
[2021-11-06] MEDS: ATORVASTATIN 20 MG TAB PO SCH (09:23)
[2021-11-06] MEDS: ASPIRIN 81MG ENTERIC TABLET PO SCH (09:24)
[2021-11-06] MEDS: POTASSIUM CHLORIDE 10MEQ SR TABLET PO SCH ×2 (09:24→20:17)
[2021-11-06] MEDS: APIXABAN 5 MG TAB (ELIQUIS) PO SCH ×2 (09:24→20:17)
[2021-11-06] MEDS: OMEPRAZOLE 20MG CAP PO SCH (09:24)
[2021-11-06] MEDS: LOSARTAN 50MG TABLET PO SCH (20:17)
[2021-11-06] MEDS: DULoxetine 30MG CAPSULE (CYMBALTA) PO SCH (20:17)
[2021-11-06] MEDS: ONDANSETRON 4MG/2ML VIAL IV PRN (21:46)
[2021-11-06] MEDS: FLUTICASONE PROP 0.05% NASAL SPRAY 16 GM (FLONASE) SCH (21:46)
[2021-11-07 05:43] VITALS: BP 143/78
[2021-11-07 06:01] LABS: BASO # 0.1 10^3/uL (0.0-0.2); BASO % 1.2 % (0.0-1.0); EOS # 0.5 10^3/uL (0.0-0.5); EOS % 6.7 % (0.0-3.0); HEMATOCRIT 37.3 % (36.0-47.0); HEMOGLOBIN 12.2 g/dl (12.0-15.5); LYMPH # 2.2 10^3/uL (1.5-5.0); LYMPH % 28.8 % (24.0-44.0); MEAN CORPUSCULAR HEMOGLOBIN 30.5 pg (27.0-33.0); MEAN CORPUSCULAR HGB CONC 32.7 g/dl (32.0-36.5); MEAN CORPUSCULAR VOLUME 93.3 fl (80.0-96.0); MONO # 0.6 10^3/uL (0.0-0.8); MONO % 8.2 % (2.0-8.0); NEUTROPHILS # 4.2 10^3/uL (1.5-8.5); NEUTROPHILS % 54.8 % (36.0-66.0); PLATELET COUNT, AUTOMATED 310 10^3/uL (150-450); WHITE BLOOD COUNT 7.7 10^3/uL (4.0-10.0)
[2021-11-07 06:31] LABS: BLOOD UREA NITROGEN 21 MG/DL (7-18); CARBON DIOXIDE LEVEL 25 MEQ/L (21-32); CHLORIDE LEVEL 110 MEQ/L (98-107); CREATININE FOR GFR 0.92 MG/DL (0.55-1.30); GLOMERULAR FILTRATION RATE > 60.0 (>45); GLUCOSE, FASTING 122 MG/DL (70-100); MAGNESIUM LEVEL 1.7 MG/DL (1.8-2.4); POTASSIUM SERUM 4.5 MEQ/L (3.5-5.1); SODIUM LEVEL 141 MEQ/L (136-145)
[2021-11-07] MEDS: ADVAIR HFA 115/21MCG INHALER INH SCH (07:55)
[2021-11-07] MEDS ORDERED: MAG SULF 1GM/100ML (MAG RUN) 1 GM in IV 1 EA IV ONE (08:00)
[2021-11-07] MEDS ORDERED: BISACODYL 10 MG SUPP PR ONE (08:15)
[2021-11-07] MEDS: ATORVASTATIN 20 MG TAB PO SCH (08:27)
[2021-11-07] MEDS: OMEPRAZOLE 20MG CAP PO SCH (08:27)
[2021-11-07] MEDS: APIXABAN 5 MG TAB (ELIQUIS) PO SCH (08:27)
[2021-11-07] MEDS: POTASSIUM CHLORIDE 10MEQ SR TABLET PO SCH (08:27)
[2021-11-07 08:29] VITALS: BP 134/77
[2021-11-07] MEDS: ASPIRIN 81MG ENTERIC TABLET PO SCH (08:30)
[2021-11-07] MEDS: DOCUSATE SODIUM 100MG CAPSULE PO SCH (08:30)
[2021-11-07] MEDS ORDERED: MOM 30ML SUSPENSION UDC PO SCH (09:00)
[2021-11-07] MEDS ORDERED: COLA100C5 PO (13:49)
[2021-11-07] MEDS ORDERED: DILT60TA PO (13:49)
[2021-11-07 14:00] VITALS: BP 122/72
== END 2021-11-07 15:37 | disposition home health service (06) | DRG 552 ==
LOC: M ED 13:02 → M ED INP 13:03 → ENRESERV 11-04 06:51 → M PCU 11-04 09:36 → OBSVTOIN 11-05 08:22 → M MSPAV 11-06 14:34
PROVIDERS: ADMIT Internal Medicine; ATTEND Internal Medicine
DX: S32.028A Other fracture of second lumbar vertebra, initial encounter for closed fracture (principal); W18.30XA Fall on same level, unspecified, initial encounter; Y92.015 Private garage of single-family (private) house as the place of occurrence of the external cause; E78.5 Hyperlipidemia, unspecified; I10 Essential (primary) hypertension; J45.909 Unspecified asthma, uncomplicated; Z79.01 Long term (current) use of anticoagulants; I48.91 Unspecified atrial fibrillation; I69.318 Other symptoms and signs involving cognitive functions following cerebral infarction; K31.84 Gastroparesis; E04.1 Nontoxic single thyroid nodule; F07.81 Postconcussional syndrome; R55 Syncope and collapse; Z79.899 Other long term (current) drug therapy; Z79.82 Long term (current) use of aspirin; Z88.5 Allergy status to narcotic agent; Z91.010 Allergy to peanuts; Z88.8 Allergy status to other drugs, medicaments and biological substances; Z91.011 Allergy to milk products; F32.A Depression, unspecified; F41.9 Anxiety disorder, unspecified

== ENCOUNTER 2021-11-20 15:21 | Outpatient (RCR) | payer OTHER, MEDICARE ==
[~2021-11-20 15:21] MED LIST changes: +ASPI81TA26 PO; +COLA100C5 PO; +DILT60TA PO; +ESOM1CAP5 PO; +FEXO-117 PO; +LOSA50TA28 PO; +MAGN400T35 PO; +VITMTA PO
== END 2021-11-21 ==
LOC: M PT 15:21
PROVIDERS: ATTEND Internal Medicine
DX: R29.6 Repeated falls (principal); R53.1 Weakness; M54.50 Low back pain, unspecified; I63.9 Cerebral infarction, unspecified

== ENCOUNTER 2021-12-18 16:00 | Outpatient (RCR) | payer OTHER, MEDICARE | END 2021-12-22 | LOC: M PT 16:00 | PROVIDERS: ATTEND Internal Medicine | DX: R29.6 Repeated falls (principal) ==

== ENCOUNTER → 2022-01-22 | Outpatient (CLI) | payer OTHER, MEDICARE ==
[~2022-01-22] MED LIST changes: +LEVO1TAB40 PO; -LEVO750T13 PO
== END ==
LOC: M RAD 12:18
PROVIDERS: ATTEND Internal Medicine
DX: E04.1 Nontoxic single thyroid nodule (principal)
CPT/HCPCS: 78012; A9516

== ENCOUNTER → 2022-01-22 | Outpatient (RCR) | payer OTHER, MEDICARE | LOC: M PT 12-31 15:07 | PROVIDERS: ATTEND Internal Medicine | DX: R29.6 Repeated falls (principal); R53.1 Weakness; M54.50 Low back pain, unspecified; Z86.73 Personal history of transient ischemic attack (TIA), and cerebral infarction without residual deficits ==

== ENCOUNTER 2022-02-20 16:00 | Outpatient (RCR) | payer OTHER, MEDICARE | END 2022-02-21 | LOC: M PT 16:00 | PROVIDERS: ATTEND Internal Medicine | DX: R29.6 Repeated falls (principal); R53.1 Weakness; M54.50 Low back pain, unspecified; Z86.73 Personal history of transient ischemic attack (TIA), and cerebral infarction without residual deficits ==

== ENCOUNTER 2022-03-06 16:00 | Outpatient (RCR) | payer OTHER, MEDICARE | END 2022-03-24 | LOC: M PT 16:00 | PROVIDERS: ATTEND Internal Medicine | DX: R29.6 Repeated falls (principal); R53.1 Weakness; M54.50 Low back pain, unspecified; Z86.73 Personal history of transient ischemic attack (TIA), and cerebral infarction without residual deficits ==

== ENCOUNTER → 2022-05-13 | Outpatient (CLI) | payer OTHER, MEDICARE | LOC: M WUC 15:13 | PROVIDERS: ATTEND Internal Medicine Endocrinology, Diabetes & Metabolism | DX: M81.0 Age-related osteoporosis without current pathological fracture (principal) ==

== ENCOUNTER → 2022-09-15 | Outpatient (CLI) | payer OTHER, MEDICARE ==
[2022-09-15 17:42] LABS: CALCIUM LEVEL 8.3 MG/DL (8.3-10.6)
[2022-09-15 17:49] LABS: TOTAL 25(OH) VITAMIN D 85.8 NG/ML (20.0-100.0)
== END ==
LOC: M WUC 12:54
PROVIDERS: ATTEND Internal Medicine Endocrinology, Diabetes & Metabolism
DX: E55.9 Vitamin D deficiency, unspecified (principal)

== ENCOUNTER → 2022-09-17 | Outpatient (CLI) | payer OTHER, MEDICARE | LOC: M WUC 12:07 | PROVIDERS: ATTEND Nurse Practitioner Family | DX: R05.9 Cough, unspecified (principal); R06.02 Shortness of breath; R09.89 Other specified symptoms and signs involving the circulatory and respiratory systems ==

== ENCOUNTER → 2022-11-26 | Outpatient (CLI) | payer OTHER, MEDICARE ==
[~2022-11-26] MED LIST changes: -LOSA100T45 PO; +LOSA100T46 PO
== END ==
LOC: M WUC 14:23
PROVIDERS: ATTEND Internal Medicine Endocrinology, Diabetes & Metabolism
DX: M81.0 Age-related osteoporosis without current pathological fracture (principal)

== ENCOUNTER → 2022-12-17 | Outpatient (REF) | payer OTHER, MEDICARE | LOC: M LAB REF 12:10 | PROVIDERS: ATTEND Physician Assistant Medical | DX: N39.0 Urinary tract infection, site not specified (principal) ==

== ENCOUNTER → 2022-12-30 | Outpatient (REF) | payer OTHER, MEDICARE | LOC: M LAB REF 20:36 | PROVIDERS: ATTEND Nurse Practitioner Family | DX: M81.0 Age-related osteoporosis without current pathological fracture (principal) ==

== ENCOUNTER → 2023-01-22 | Outpatient (REF) | payer OTHER, MEDICARE | LOC: M LAB REF 16:04 | PROVIDERS: ATTEND Internal Medicine | DX: N39.0 Urinary tract infection, site not specified (principal) ==

== ENCOUNTER → 2023-01-29 | Outpatient (REF) | payer OTHER, MEDICARE | LOC: M LAB REF 16:00 | PROVIDERS: ATTEND Internal Medicine | DX: N39.0 Urinary tract infection, site not specified (principal) ==

== ENCOUNTER → 2023-01-30 | Outpatient (REF) | payer OTHER, MEDICARE | LOC: M WUC 18:08 | PROVIDERS: ATTEND Physician Assistant | DX: R30.0 Dysuria (principal) ==

== ENCOUNTER → 2023-02-03 | Outpatient (CLI) | payer OTHER, MEDICARE ==
[2023-02-03 18:46] LABS: CALCIUM LEVEL 8.9 MG/DL (8.3-10.6)
== END ==
LOC: M LAB 16:49
PROVIDERS: ATTEND Nurse Practitioner Family
DX: M81.0 Age-related osteoporosis without current pathological fracture (principal); E55.9 Vitamin D deficiency, unspecified

== ENCOUNTER → 2023-04-14 | Outpatient (REF) | payer OTHER, MEDICARE ==
[~2023-04-14] MED LIST changes: -CEFD300C41; +CEFD300C42
== END ==
LOC: M WUC 18:24
PROVIDERS: ATTEND Nurse Practitioner Family
DX: M81.0 Age-related osteoporosis without current pathological fracture (principal)

== ENCOUNTER → 2023-05-11 | Outpatient (CLI) | payer OTHER, MEDICARE ==
[~2023-05-11] MED LIST changes: +CEFD1CAP9; -CEFD300C42
[2023-05-11 15:03] LABS: CALCIUM LEVEL 9.1 MG/DL (8.3-10.6)
[2023-05-11 15:07] LABS: TOTAL 25(OH) VITAMIN D 90.5 NG/ML (20.0-100.0)
== END ==
LOC: M PLALAB 09:57
PROVIDERS: ATTEND Nurse Practitioner Family
DX: M81.0 Age-related osteoporosis without current pathological fracture (principal); E55.9 Vitamin D deficiency, unspecified

== ENCOUNTER → 2023-06-18 | Outpatient (REF) | payer OTHER, MEDICARE ==
[2023-06-18 18:47] LABS: CALCIUM LEVEL 8.8 MG/DL (8.3-10.6)
[2023-06-18 18:54] LABS: TOTAL 25(OH) VITAMIN D 99.3 NG/ML (20.0-100.0)
== END ==
LOC: M LABWUC 17:14
PROVIDERS: ATTEND Nurse Practitioner Family
DX: M81.0 Age-related osteoporosis without current pathological fracture (principal); E55.9 Vitamin D deficiency, unspecified

== ENCOUNTER → 2023-07-22 | Outpatient (CLI) | payer MEDICARE, OTHER | LOC: M WUC 15:10 | PROVIDERS: ATTEND Nurse Practitioner Family | DX: M81.0 Age-related osteoporosis without current pathological fracture (principal) ==

== ENCOUNTER → 2023-07-29 | Outpatient (CLI) | payer OTHER, MEDICARE ==
[2023-07-29 16:24] LABS: CPK CREATINE PHOSPHOKINASE 59 U/L (34-145)
[2023-07-29 16:25] LABS: ALBUMIN 3.3 G/DL (3.2-5.2); ALKALINE PHOSPHATASE 79 U/L (46-116); ALT/SGPT 21 U/L (7.0-40); AST/SGOT 16 U/L (<34); BILIRUBIN,TOTAL 0.7 MG/DL (0.3-1.2); BLOOD UREA NITROGEN 14 MG/DL (9-23); CALCIUM LEVEL 8.4 MG/DL (8.3-10.6); CARBON DIOXIDE LEVEL 26 MMOL/L (20-31); CHLORIDE LEVEL 110 MMOL/L (98-107); CHOLESTEROL LEVEL 125 MG/DL (<200); CHOLESTEROL RISK RATIO 2.67 (<5); CREATININE FOR GFR 0.86 MG/DL (0.55-1.30); GLOMERULAR FILTRATION RATE > 60.0 (>45); GLUCOSE, FASTING 111 MG/DL (74-106); HDL CHOLESTEROL 46.8 MG/DL (>40); MAGNESIUM LEVEL 1.9 MG/DL (1.8-2.4); NON-HDL-C 78.2 MG/DL; POTASSIUM SERUM 4.4 MMOL/L (3.5-5.1); SODIUM LEVEL 142 MMOL/L (136-145); TOTAL PROTEIN 6.6 G/DL (5.7-8.2); TRIGLYCERIDES LEVEL 121 MG/DL (<150)
[2023-07-29 16:26] LABS: THYROID STIMULATING HORMONE 0.525 uIU/ML (0.55-4.78)
[2023-07-29 16:35] LABS: BASO # 0.1 10^3/uL (0.0-0.2); BASO % 1.5 % (0.0-1.0); EOS # 0.2 10^3/uL (0.0-0.5); EOS % 2.7 % (0.0-3.0); HEMATOCRIT 41.4 % (36.0-47.0); HEMOGLOBIN 13.8 g/dl (12.0-15.5); LYMPH # 2.4 10^3/uL (1.5-5.0); LYMPH % 35.6 % (24.0-44.0); MEAN CORPUSCULAR HEMOGLOBIN 31.4 pg (27.0-33.0); MEAN CORPUSCULAR HGB CONC 33.3 g/dl (32.0-36.5); MEAN CORPUSCULAR VOLUME 94.1 fl (80.0-96.0); MONO # 0.5 10^3/uL (0.0-0.8); MONO % 6.7 % (2.0-8.0); NEUTROPHILS # 3.6 10^3/uL (1.5-8.5); NEUTROPHILS % 53.4 % (36.0-66.0); PLATELET COUNT, AUTOMATED 320 10^3/uL (150-450); WHITE BLOOD COUNT 6.7 10^3/uL (4.0-10.0)
[2023-07-29 16:38] LABS: HEMOGLOBIN A1c 5.5 % (4.0-6.0)
== END ==
LOC: M WUC 13:05
PROVIDERS: ATTEND Internal Medicine
DX: K21.9 Gastro-esophageal reflux disease without esophagitis (principal); E78.00 Pure hypercholesterolemia, unspecified; E04.1 Nontoxic single thyroid nodule; E73.9 Lactose intolerance, unspecified; I10 Essential (primary) hypertension; E83.42 Hypomagnesemia

== ENCOUNTER → 2023-08-19 | Outpatient (CLI) | payer OTHER, MEDICARE ==
[2023-08-19 16:59] LABS: BASO # 0.1 10^3/uL (0.0-0.2); BASO % 1.4 % (0.0-1.0); EOS # 0.3 10^3/uL (0.0-0.5); EOS % 4.5 % (0.0-3.0); HEMATOCRIT 40.9 % (36.0-47.0); HEMOGLOBIN 13.1 g/dl (12.0-15.5); LYMPH # 2.5 10^3/uL (1.5-5.0); LYMPH % 33.6 % (24.0-44.0); MEAN CORPUSCULAR HEMOGLOBIN 31.2 pg (27.0-33.0); MEAN CORPUSCULAR VOLUME 97.4 fl (80.0-96.0); MONO # 0.6 10^3/uL (0.0-0.8); MONO % 8.6 % (2.0-8.0); NEUTROPHILS # 3.8 10^3/uL (1.5-8.5); NEUTROPHILS % 51.6 % (36.0-66.0); PLATELET COUNT, AUTOMATED 305 10^3/uL (150-450); WHITE BLOOD COUNT 7.3 10^3/uL (4.0-10.0)
[2023-08-19 17:05] LABS: ERYTHROCYTE SEDIMENTATION RATE 27 mm/hr (0-30)
== END ==
LOC: M WUC 11:26
PROVIDERS: ATTEND Physician Assistant
DX: M51.36 Other intervertebral disc degeneration, lumbar region (principal)

== ENCOUNTER → 2023-11-10 | Outpatient (REF) | payer MEDICARE, OTHER ==
[~2023-11-10] MED LIST changes: -ESOM0.1C PO; +ESOM1CAP20 PO; -ESOM1CAP5 PO; +ESOM20CA2 PO
[2023-11-10 18:58] LABS: CREATININE FOR GFR 0.99 MG/DL (0.55-1.30); GLOMERULAR FILTRATION RATE 59.2 (>45); POTASSIUM SERUM 4.5 MMOL/L (3.5-5.1)
== END ==
LOC: M LABWUC 16:33
PROVIDERS: ATTEND Internal Medicine Gastroenterology
DX: K62.5 Hemorrhage of anus and rectum (principal); K21.00 Gastro-esophageal reflux disease with esophagitis, without bleeding

== ENCOUNTER → 2024-02-09 | Outpatient (REF) | payer MEDICARE, OTHER | LOC: M LAB REF 16:16 | PROVIDERS: ATTEND Internal Medicine | DX: M54.50 Low back pain, unspecified (principal); R30.0 Dysuria ==

== ENCOUNTER → 2024-03-01 | Outpatient (REF) | payer MEDICARE, OTHER | LOC: M LAB REF 16:20 | PROVIDERS: ATTEND Physician Assistant | DX: R30.0 Dysuria (principal) ==

== ENCOUNTER → 2024-03-07 | Outpatient (CLI) | payer MEDICARE, OTHER ==
[2024-03-07 19:40] LABS: BLOOD UREA NITROGEN 10 MG/DL (9-23); CALCIUM LEVEL 8.9 MG/DL (8.3-10.6); CARBON DIOXIDE LEVEL 26 MMOL/L (20-31); CHLORIDE LEVEL 108 MMOL/L (98-107); CREATININE FOR GFR 0.85 MG/DL (0.55-1.30); GLOMERULAR FILTRATION RATE > 60.0 (>39); GLUCOSE, FASTING 117 MG/DL (74-106); POTASSIUM SERUM 4.2 MMOL/L (3.5-5.1); SODIUM LEVEL 141 MMOL/L (136-145)
== END ==
LOC: M WUC 15:19
PROVIDERS: ATTEND Nurse Practitioner Family
DX: M81.0 Age-related osteoporosis without current pathological fracture (principal); E55.9 Vitamin D deficiency, unspecified

== ENCOUNTER → 2024-03-07 | Outpatient (CLI) | payer MEDICARE, OTHER ==
[2024-03-07 20:00] LABS: CALCIUM LEVEL 8.8 MG/DL (8.3-10.6)
[2024-03-07 20:04] LABS: TOTAL 25(OH) VITAMIN D 101.2 NG/ML (20.0-100.0)
== END ==
LOC: M WUC 15:22
PROVIDERS: ATTEND Nurse Practitioner Family
DX: M81.0 Age-related osteoporosis without current pathological fracture (principal); E55.9 Vitamin D deficiency, unspecified

== ENCOUNTER → 2024-05-09 | Outpatient (REF) | payer MEDICARE, OTHER ==
[~2024-05-09] MED LIST changes: -FEXO-117 PO; +FEXO-193 PO; +LEVA15HF2 INH; -LEVAINH INH
== END ==
LOC: M LAB REF 09:59
PROVIDERS: ATTEND Student in an Organized Health Care Education/Training Program
DX: R30.0 Dysuria (principal)

== ENCOUNTER → 2024-05-31 | Outpatient (REF) | payer MEDICARE, OTHER ==
[2024-05-31 13:47] LABS: APPEARANCE, URINE TURBID (CLEAR); BACTERIA, URINE AUTO 2+ (NEGATIVE); BILIRUBIN, URINE AUTO NEGATIVE (NEGATIVE); BLOOD, URINE BLOOD 1+ (NEGATIVE); COLOR, URINE YELLOW (YELLOW); GLUCOSE, URINE (UA) AUTO NEGATIVE (NEGATIVE); KETONE, URINE AUTO NEGATIVE (NEGATIVE); LEUKOCYTE ESTERASE, URINE AUTO 1+ (NEGATIVE); MUCUS, URINE SMALL (NEGATIVE); NITRITE, URINE AUTO NEGATIVE (NEGATIVE); PROTEIN, URINE AUTO 3+ mg/dL (NEGATIVE); RBC, URINE AUTO 114 /HPF (0-3); SPECIFIC GRAVITY URINE AUTO 1.015 (1.002-1.035); SQUAMOUS EPITHELIAL CELL UR AU 0 /HPF (0-6); UROBILINOGEN, URINE AUTO 0.2 mg/dL (0.0-2.0); WBC, URINE AUTO TNTC /HPF (0-3)
== END ==
LOC: M LAB REF 11:59
PROVIDERS: ATTEND Internal Medicine
DX: M54.50 Low back pain, unspecified (principal); N30.20 Other chronic cystitis without hematuria

== ENCOUNTER → 2024-07-04 | Outpatient (CLI) | payer MEDICARE, OTHER | LOC: M WUC 09:28 | PROVIDERS: ATTEND Internal Medicine | DX: R05.9 Cough, unspecified (principal) ==

== ENCOUNTER → 2024-07-19 | Outpatient (REF) | payer MEDICARE, OTHER | LOC: M LAB REF 17:39 | PROVIDERS: ATTEND Internal Medicine | DX: N39.0 Urinary tract infection, site not specified (principal) ==

== ENCOUNTER → 2024-08-03 | Outpatient (REF) | payer MEDICARE, OTHER ==
[2024-08-03 18:16] LABS: BLOOD UREA NITROGEN 17 MG/DL (9-23); CALCIUM LEVEL 8.5 MG/DL (8.3-10.6); CARBON DIOXIDE LEVEL 22 MMOL/L (20-31); CHLORIDE LEVEL 109 MMOL/L (98-107); CREATININE FOR GFR 0.94 MG/DL (0.55-1.30); GLOMERULAR FILTRATION RATE > 60.0 (>39); GLUCOSE, FASTING 110 MG/DL (74-106); POTASSIUM SERUM 5.4 MMOL/L (3.5-5.1); SODIUM LEVEL 142 MMOL/L (136-145); TOTAL 25(OH) VITAMIN D 91.8 NG/ML (20.0-100.0)
== END ==
LOC: M LABWUC 17:11
PROVIDERS: ATTEND Nurse Practitioner Family
DX: E55.9 Vitamin D deficiency, unspecified (principal); M81.0 Age-related osteoporosis without current pathological fracture

== ENCOUNTER → 2025-03-02 | Outpatient (CLI) | payer MEDICARE, OTHER ==
[~2025-03-02] MED LIST changes: +ACET-1515 PO; -ACET650T15 PO
[2025-03-02 18:42] LABS: CALCIUM LEVEL 8.6 MG/DL (8.3-10.6); CARBON DIOXIDE LEVEL 25.0 MMOL/L (20-31); CHLORIDE LEVEL 110.0 MMOL/L (98-107); CREATININE FOR GFR 0.94 MG/DL (0.55-1.30); GLOMERULAR FILTRATION RATE 64.9 (>39); POTASSIUM SERUM 3.7 MMOL/L (3.5-5.1); SODIUM LEVEL 145.0 MMOL/L (136-145)
[2025-03-02 18:44] LABS: TOTAL 25(OH) VITAMIN D 62.2 NG/ML (20.0-100.0)
== END ==
LOC: M WUC 14:36
PROVIDERS: ATTEND Nurse Practitioner Family
DX: M81.0 Age-related osteoporosis without current pathological fracture (principal)

== ENCOUNTER → 2025-03-07 | Outpatient (REF) | payer MEDICARE, OTHER | LOC: M LAB REF 12:10 | PROVIDERS: ATTEND Internal Medicine | DX: D64.9 Anemia, unspecified (principal) ==

== ENCOUNTER → 2025-03-30 | Outpatient (REF) | payer MEDICARE, OTHER | LOC: M LAB REF 14:32 | PROVIDERS: ATTEND Internal Medicine | DX: R53.83 Other fatigue (principal); D50.9 Iron deficiency anemia, unspecified ==

== ENCOUNTER → 2025-04-04 | Outpatient (CLI) | payer MEDICARE, OTHER ==
[~2025-04-04] MED LIST changes: +METHACHOLINE KIT (6 VIAL.NEB PREMIX) INH ONE
== END ==
LOC: M CARPUL 03-09 09:20
PROVIDERS: ATTEND Physician Assistant
DX: R06.02 Shortness of breath (principal)
CPT/HCPCS: 94070; 95070; J7674

== ENCOUNTER → 2025-05-14 | Outpatient (REF) | payer MEDICARE, OTHER ==
[~2025-05-14] MED LIST changes: -METHACHOLINE KIT (6 VIAL.NEB PREMIX) INH ONE; +POTA-232 PO; -POTA10TA67 PO
== END ==
LOC: M LAB REF 19:16
PROVIDERS: ATTEND Registered Nurse
DX: N39.0 Urinary tract infection, site not specified (principal)

== ENCOUNTER → 2025-05-24 | Outpatient (REF) | payer MEDICARE, OTHER | LOC: M LAB REF 16:46 | DX: R30.0 Dysuria (principal) ==